=== PATIENT | female | born 1970 | race African-American/Black ===

== ENCOUNTER 2020-02-08 10:15 | Outpatient (RCR) | payer OTHER ==
[~2020-02-08 10:15] MED LIST: ASTEPRO205.5 MCG/ NS; CLARITIN 1010 MG/TAB PO; NEXIUM 20MG20 MG PO; PROAIR HFA0.09 MG/AC IH; PROZAC 20MG20 MG PO; RT ADVAIR 528 DISKUS IH; RT SPIRIVA18 MCG IH; SINGULAIR 110 MG/TAB PO; SUDAFED30 MG PO; VITAMIN D32000 IU PO; ZADITOR 5 ML5 ML OP
== END 2020-04-14 09:50 | disposition home or self-care (01) ==
LOC: WSC 10:15
DX: M54.5 Low back pain (principal)